=== PATIENT | male | born 1970 | race Caucasian/White ===

== ENCOUNTER 2021-07-09 08:31 | Outpatient (CLI) | payer BC | END 2021-07-09 08:32 | disposition home or self-care (01) | LOC: SCSMRI 08:31 | PROVIDERS: ATTEND Psychiatry & Neurology Neurology | DX: R25.8 Other abnormal involuntary movements (principal); G93.9 Disorder of brain, unspecified | CPT/HCPCS: 70553 ==

== ENCOUNTER 2022-05-27 07:46 | Outpatient (CLI) | payer BC | END 2022-05-27 07:47 | disposition home or self-care (01) | LOC: NM 07:46 | PROVIDERS: ATTEND Psychiatry & Neurology Neurology | DX: G20 Parkinson's disease (principal) | CPT/HCPCS: 78803; A9584 ==